=== PATIENT | male | born 1960 | race African-American/Black ===

== ENCOUNTER 2021-02-24 21:21 | Emergency (ER) | payer OTHER ==
[~2021-02-24] VITALS: Ht 180.3 cm; Wt 94.7 kg
[2021-02-24] MEDS ORDERED: HYDROCODONE/ACETAMINOPHEN 10/325MG TABLET PO ONE (23:00)
[2021-02-24] MEDS ORDERED: CYCLOBENZAPRINE 10MG TABLET PO ONE (23:00)
[2021-02-25 00:30] VITALS: BP 133/75
[2021-02-25] MEDS ORDERED: HYDROCODONE/ACETAMINOPHEN 5/325MG TABLET PO ONE (00:30)
== END 2021-02-25 00:30 | disposition home or self-care (01) ==
LOC: ER 21:21
DX: M54.9 Dorsalgia, unspecified (principal); M54.2 Cervicalgia; I10 Essential (primary) hypertension; W01.0XXA Fall on same level from slipping, tripping and stumbling without subsequent striking against object, initial encounter; Y93.F1 Activity, caregiving, bathing; Y92.9 Unspecified place or not applicable; Z86.73 Personal history of transient ischemic attack (TIA), and cerebral infarction without residual deficits; Z98.890 Other specified postprocedural states
CPT/HCPCS: 99284

== ENCOUNTER 2021-07-19 12:46 | Emergency (ER) | payer MEDICAID, OTHER ==
[~2021-07-19] VITALS: Ht 182.9 cm; Wt 85.0 kg
[2021-07-19 13:08] VITALS: BP 118/82
== END 2021-07-19 18:01 | disposition home or self-care (01) ==
LOC: ER 12:46
DX: T40.601A Poisoning by unspecified narcotics, accidental (unintentional), initial encounter (principal); I10 Essential (primary) hypertension; Y92.89 Other specified places as the place of occurrence of the external cause; Z86.73 Personal history of transient ischemic attack (TIA), and cerebral infarction without residual deficits
CPT/HCPCS: 99283

== ENCOUNTER 2022-05-06 06:02 | Inpatient (IN) | payer MEDICAID ==
[~2022-05-06] VITALS: Ht 180.3 cm; Wt 91.2 kg
[2022-05-06] MEDS ORDERED: MORPHINE SULFATE 4 MG/ML CPJ (NOT FOR IM USE) IV STA (13:03)
[2022-05-06] MEDS ORDERED: ONDANSETRON HCL 4MG/2ML INJ IV STA (13:03)
[2022-05-06] MEDS ORDERED: SODIUM CHLORIDE 0.9% 1,000 ML IV ONE (13:15)
[2022-05-06 15:00] LABS: BASOPHILS % 0.9 % (0.0-2.0); EOSINOPHILS % 0.4 % (0.0-5.0); LYMPHOCYTES % 29.9 % (20.0-50.0); MEAN CORPUSCULAR HEMOGLOBIN 29.2 pg (28.0-32.0); MEAN CORPUSCULAR VOLUME 85.4 fL (80.0-94.0); MEAN PLATELET VOLUME 9.5 fl (7.4-10.4); MONOCYTES % 5.7 % (2.0-8.0); NEUTROPHILS % 63.1 % (40.0-76.0); PLATELET 273 x1000/uL (130-400); RED BLOOD CELL COUNT 4.81 mill/uL (4.7-6.1); RED CELL DISTRIBUTION WIDTH 14.1 % (11.6-14.6)
[2022-05-06 15:02] LABS: CHLORIDE 106 mEq/L (98-107)
[2022-05-06] MEDS ORDERED: OXYC1TAB12 MT (17:54)
[2022-05-06] MEDS ORDERED: DICL25TA10 MT (17:54)
[2022-05-06] MEDS ORDERED: ABIL10 MT (17:54)
[2022-05-06] MEDS ORDERED: AMLO5TAB88 MT (17:54)
[2022-05-06] MEDS ORDERED: GABA300S PO (17:54)
[2022-05-06] MEDS ORDERED: CLON0.2T MT (17:54)
[2022-05-06] MEDS ORDERED: TRAZ300T11 MT (17:54)
[2022-05-06] MEDS ORDERED: ESCI20TA37 MT (17:54)
[2022-05-06] MEDS ORDERED: BACL-141 MT (17:54)
[2022-05-06 17:57] VITALS: BP 159/74
[2022-05-06] MEDS ORDERED: ONDANSETRON HCL 4MG/2ML INJ IV PRN (18:15)
[2022-05-06] MEDS ORDERED: ACETAMINOPHEN 325MG TABLET PO PRN (18:15)
[2022-05-06 20:00] VITALS: BP 156/92
[2022-05-06] MEDS ORDERED: OXYC-580 PO (20:04)
[2022-05-06] MEDS ORDERED: DICL50TA9 PO (20:04)
[2022-05-06] MEDS ORDERED: GABA800T97 PO (20:04)
[2022-05-06] MEDS ORDERED: CLONIDINE 0.1MG TABLET PO PRN (20:45)
[2022-05-06] MEDS ORDERED: TRAZODONE HCL 50MG TABLET PO SCH (21:00)
[2022-05-06] MEDS ORDERED: GABAPENTIN 300MG CAPSULE PO SCH (21:00)
[2022-05-06] MEDS: GABAPENTIN 400MG CAPSULE PO SCH (21:44)
[2022-05-06] MEDS: BACLOFEN 10MG TABLET PO SCH (21:45)
[2022-05-06] MEDS: HYDROCODONE/ACETAMINOPHEN 10/325MG TABLET PO PRN (21:45)
[2022-05-07] VITALS: BP 130/74
[2022-05-07 04:00] VITALS: BP 147/86
[2022-05-07] MEDS: HYDROCODONE/ACETAMINOPHEN 10/325MG TABLET PO PRN ×3 (04:35→15:58)
[2022-05-07] MEDS: BACLOFEN 10MG TABLET PO SCH ×3 (06:44→16:52)
[2022-05-07] MEDS: GABAPENTIN 400MG CAPSULE PO SCH ×3 (06:45→16:52)
[2022-05-07 08:00] VITALS: BP_SYST 132; BP_SYST 139; BP_SYST 148; BP_DIAS 78; BP_DIAS 80; BP_DIAS 84
[2022-05-07] MEDS ORDERED: AMLODIPINE 10MG TABLET PO SCH (09:00)
[2022-05-07] MEDS ORDERED: ARIPIPRAZOLE 5MG TABLET PO SCH (09:00)
[2022-05-07 12:00] VITALS: BP 130/65
[2022-05-07 13:34] VITALS: BP 129/65
[2022-05-07 15:40] LABS: CLARITY URINE CLEAR (CLEAR); COLOR URINE YELLOW (YELLOW); KETONES URINE NEGATIVE (NEGATIVE); LEUKOCYTE ESTERASE URINE NEGATIVE (NEGATIVE); NITRITE URINE NEGATIVE (NEGATIVE); OCCULT BLOOD URINE NEGATIVE (NEGATIVE); PH URINE 6.5 (4.5-8.0); PROTEIN URINE NEGATIVE (NEGATIVE); SPECIFIC GRAVITY URINE 1.014 (1.005-1.030)
[2022-05-07 16:00] VITALS: BP 127/73
[2022-05-07 16:08] LABS: *AMPHETAMINES SCREEN URINE NEGATIVE (NEGATIVE); *BARBITURATES SCREEN URINE NEGATIVE (NEGATIVE); *BENZODIAZEPINES SCREEN URINE NEGATIVE (NEGATIVE); *COCAINE SCREEN URINE NEGATIVE (NEGATIVE); CANNABINOID URINE SCREEN NEGATIVE (NEGATIVE); METHADONE URINE SCREEN NEGATIVE (NEGATIVE); OPIATES URINE SCREEN PRESUMTIVE POSITIVE (NEGATIVE); PHENCYCLIDINE URINE SCREEN NEGATIVE (NEGATIVE)
[2022-05-07] MEDS ORDERED: CITALOPRAM HYDROBROMIDE 10MG TABLET PO SCH (21:00)
== END 2022-05-07 18:41 | disposition home or self-care (01) | DRG 48 ==
LOC: ER 06:02 → 7WST 14:31 → ENRESERV 16:16
PROVIDERS: ADMIT Internal Medicine; ATTEND Internal Medicine
DX: G90.8 Other disorders of autonomic nervous system (principal); E11.9 Type 2 diabetes mellitus without complications; I10 Essential (primary) hypertension; M17.12 Unilateral primary osteoarthritis, left knee; Z86.73 Personal history of transient ischemic attack (TIA), and cerebral infarction without residual deficits; Z82.49 Family history of ischemic heart disease and other diseases of the circulatory system
CPT/HCPCS: 36415; 71045; 73502; 73564; 80053; 80305; 81003; 83036; 83880; 84484; 85025; 93005; 93306; 93880; 99285; J2270; J2405; J7030